=== PATIENT | male | born 1955 | race Caucasian/White ===

== ENCOUNTER 2019-01-09 19:21 | Emergency (ER) | payer SELFPAY ==
[~2019-01-09] VITALS: Ht 177.8 cm; Wt 83.9 kg
--- NOTE | 2019-01-09 19:34 | NUR ---
PT BIB SELF C/O LT FLANK PAIN X 3 DAYS GETTING WORSE TODAY,. PT IS AAOX4, NOT IN RESPIRATORY DISTRESS, V/S STABLE, KEPT RESTED AND COMFORTABLE, WILL CONTINUE TO MONITOR.
--- NOTE | 2019-01-09 19:40 | NUR ---
IV LINE ESTABLISHED, LABS DRAWNED AND SENT TO LAB.
[2019-01-09] MEDS ORDERED: KETOROLAC TROMETHAMINE 15 MG/ML VIAL ONE ×2 (19:45→20:45)
--- NOTE | 2019-01-09 19:45 | NUR ---
SEEN AND EXAMINED BY DR. LOERA
[2019-01-09] MEDS ORDERED: ONDANSETRON HCL/PF 4 MG/2 ML VIAL ONE (19:46)
[2019-01-09 19:49] LABS: BILIRUBIN,URINE SMALL (NEGATIVE); BLOOD, URINE Large Ery/uL (NEGATIVE); COLOR,URINE Yellow (YELLOW); KETONES,URINE >=160 (NEGATIVE); LEUKOCYTE ESTERASE ,URINE Negative (NEGATIVE); NITRITE, URINE Negative (NEGATIVE); PH,URINE 5.5 (5.0-8.0); PROTEIN,URINE Trace mg/dl (NEGATIVE); UGLUCOSE Negative (NEGATIVE); UROBILINOGEN,URINE 0.2 EU/dL (0.2)
[2019-01-09 19:50] LABS: BASOPHILS % (AUTO) 0.3 % (0.0-2.0); EOSINOPHILS % (AUTO) 0.3 % (0.0-6.0); HEMATOCRIT 44 % (39-51); HEMOGLOBIN 15.4 g/dL (13.5-17.5); LYMPHOCYTES # (AUTO) 1.4 /CMM (0.8-4.8); LYMPHOCYTES % (AUTO) 11.7 % (20.0-44.0); MEAN CORPUSCULAR HGB CONC 35 g/dl (31.0-36.0); MEAN CORPUSCULAR VOLUME 96 fL (80-96); MONOCYTES # (AUTO) 0.7 /CMM (0.1-1.30); MONOCYTES % (AUTO) 5.7 % (2.0-12.0); NEUTROPHILS # (AUTO) 9.8 /CMM (1.8-8.9); PLATELET COUNT (AUTO) 317 /CMM (150-450); RED BLOOD CELL COUNT(AUTO) 4.62 MIL/uL (4.5-6.0); WHITE BLOOD COUNT (AUTO) 11.9 K/uL (4.3-11.0)
--- NOTE | 2019-01-09 19:50 | NUR ---
URINE SPECIMEN COLLECTED AND SENT TO LAB.
[2019-01-09 19:57] LABS: CALCIUM, SERUM 11.2 mg/dL (8.5-10.1); CREATININE 1.4 mg/dL (0.6-1.3)
[2019-01-09] MEDS ORDERED: IV NS 0.9% 1,000 ML BAG IV ONE (20:00)
[2019-01-09] MEDS ORDERED: ONDANSETRON HCL/PF - ER 4 MG/2 ML VIAL IV ONE (20:00)
[2019-01-09] MEDS ORDERED: KETOROLAC TROMETHAMINE INJ 30 MG/ML VIAL IV ONE ×2 (20:00→21:00)
[2019-01-09 20:02] LABS: APPEARANCE,URINE HAZY (CLEAR)
[2019-01-09 20:04] LABS: ALBUMIN 4.8 g/dL (3.4-5.0); BACTERIA,URINE Rare /HPF (None Seen); BILIRUBIN,DIRECT 0.2 mg/dL (0.0-0.2); CALCIUM OXALATE CRYSTALS,UR Few /HPF (None Seen); RBC,URINE 21-50 /HPF (0-2); SQUAMOUS EPITHELIAL CELL,UR Few /HPF (None Seen); TOTAL PROTEIN, SERUM 8.3 g/dL (6.4-8.2)
[2019-01-09] MEDS ORDERED: MORPHINE SULFATE INJ 2 MG/ML DISP.SYRIN ONE (20:11)
[2019-01-09] MEDS ORDERED: MORPHINE SULFATE INJ 2 MG/ML DISP.SYRIN IV ONE (20:30)
[2019-01-09] MEDS ORDERED: HYDROCODONE/APAP 5/325MG 1 EACH TABLET PO ONE (22:00)
[2019-01-09] MEDS ORDERED: HYDROCODONE/APAP 5/325MG 1 EACH TABLET ONE (22:00)
--- NOTE | 2019-01-09 22:08 | NUR ---
IV removed. Catheter intact and site benign. Pressure and 4x4 applied to site. No bleeding noted.
--- NOTE | 2019-01-09 22:09 | NUR ---
Ish ambulatory w/ steady gait, resp even & unlabored, nad noted. Patient discharged to home in stable condition. Written and verbal after care instructions given along w/ prescriptions. Patient instructed not to drive while on pain medications. Patient at bedside will drive patient home. Patient verbalizes understanding of instruction.
[2019-01-09 22:22] VITALS: BP 133/74
== END 2019-01-09 22:23 | disposition home or self-care (01) ==
LOC: ER 19:24
DX: N13.2 Hydronephrosis with renal and ureteral calculous obstruction (principal); N18.9 Chronic kidney disease, unspecified; R31.9 Hematuria, unspecified; Z88.6 Allergy status to analgesic agent
CPT/HCPCS: 36415; 74176; 80048; 80076; 81001; 83690; 85025; 96361; 96374; 96375; 96376; 99284; J1885 ×2; J2270; J2405; J7030; 81000-TC